=== PATIENT | female | born 1970 | race Caucasian/White ===

== ENCOUNTER → 2020-02-28 | Outpatient (CLI) | payer OTHER ==
--- NOTE | 2020-02-28 14:02 | CARD ---
MR#: [id number] Date of Study: 02/28/2020 Ordering Physician: BLAS ROPER, Referring Physician: BLAS ROPER, Tech: Ibis Cox JOE APPROVED REPORT EXAM: Two-dimensional and M-mode echocardiogram with Doppler and color Doppler. Other Information Quality : Good INDICATION Murmur 2D DIMENSIONS RVDd2.6 (2.9-3.5cm)Left Atrium(2D)3.3 (1.6-4.0cm) IVSd0.7 (0.7-1.1cm)Aortic Root(2D)2.5 (2.0-3.7cm) LVDd5.2 (3.9-5.9cm)LVOT Diameter1.9 (1.8-2.4cm) PWd0.7 (0.7-1.1cm)LVDs3.1 (2.5-4.0cm) FS (%) 30.0 %SV92.3 ml LVEF(%)60.0 (>50%) Aortic Valve AoV Peak Blanco.164.1cm/sAoV VTI34.1cm AO Peak GR.10.8mmHgLVOT Peak Blanco.137.5cm/s AO Mean GR.5mmHgAVA (VMAX)2.38cm2 JESSE (VTI)2.50cm2 Mitral Valve MV E Fvoegleb996.4cm/sMV DECEL [id number] MV A Myywgqtk91.2cm/sE/A Ratio1.3 Tricuspid Valve TR P. Brgvjmtq557bl/sRAP GMLLIOXW5xxHz TR Peak Gr.77njUzRPLK01ocEq Pulmonary Vein S1 Jzbhpdqb92.7cm/sD2 Jyubhoek30.8cm/s LEFT VENTRICLE The left ventricle is normal size. There is normal left ventricular wall thickness. The left ventricu lar systolic function is normal and the ejection fraction is within normal range. The Ejection Fracti on is 55-60%. There is normal LV segmental wall motion. The left ventricular diastolic function and f illing is normal for age. RIGHT VENTRICLE The right ventricle is normal size. The right ventricular systolic function is normal. ATRIA The left atrium size is normal. The right atrium size is normal. The interatrial septum is intact wit h no evidence for an atrial septal defect or patent foramen ovale as noted on 2-D or Doppler imaging. AORTIC VALVE The aortic valve is normal in structure and function. Doppler and Color Flow revealed no significant aortic regurgitation. There is no significant aortic valvular stenosis. MITRAL VALVE The mitral valve is normal in structure and function. There is no evidence of mitral valve prolapse. There is no mitral valve stenosis. Doppler and Color-flow revealed trace mitral regurgitation. TRICUSPID VALVE The tricuspid valve is normal in structure and function. Doppler and Color Flow revealed trace to mil d tricuspid regurgitation The PA pressure was estimated at 38 mmHg. There is no tricuspid valve steno sis. PULMONIC VALVE The pulmonic valve is not well visualized. Doppler and Color Flow revealed trace pulmonic valvular re gurgitation. There is no pulmonic valvular stenosis. GREAT VESSELS The aortic root is normal in size. The ascending aorta is normal in size. The IVC is normal in size a nd collapses >50% with inspiration. PERICARDIAL EFFUSION There is no evidence of significant pericardial effusion. Critical Notification Critical Value: No <Conclusion> The left ventricle is normal size. The left ventricular systolic function is normal and the ejection fraction is within normal range. The Ejection Fraction is 55-60%. There is normal LV segmental wall motion. Doppler and Color Flow revealed no significant aortic regurgitation. There is no significant aortic valvular stenosis. Doppler and Color-flow revealed trace mitral regurgitation. Doppler and Color Flow revealed trace to mild tricuspid regurgitation The PA pressure was estimated at 38 mmHg. Signed by : Pj Owens MD Electronically Approved : 02/28/2020 14:01:14
== END | disposition home or self-care (01) ==
LOC: ECHO 08:27
PROVIDERS: ATTEND Family Medicine
DX: I07.1 Rheumatic tricuspid insufficiency (principal)
CPT/HCPCS: 93306